=== PATIENT | male | born 1985 | race Two or more races ===

== ENCOUNTER 2024-07-13 08:17 | Inpatient (IN) | payer OTHER ==
[~2024-07-13] VITALS: Ht 167.6 cm; Wt 77.0 kg
[2024-07-13] MEDS: LORazepam 2 MG/ML VIAL IM ONE (08:54)
[2024-07-13 09:04] LABS: BASOPHILS % (AUTO) 0.3 % (0.0-2.0); EOSINOPHILS % (AUTO) 0.2 % (1.0-6.0); HEMATOCRIT 43.1 % (41-53); HEMOGLOBIN 14.6 g/dL (13.5-17.5); LYMPHOCYTES # (AUTO) 1.4 K/uL (1.0-4.8); LYMPHOCYTES % (AUTO) 11.1 % (22.0-44.0); MEAN CORPUSCULAR HEMOGLOBIN 29.9 pg (26.0-34.0); MEAN CORPUSCULAR HGB CONC 33.9 G/dL (31.0-37.0); MEAN CORPUSCULAR VOLUME 88 fL (80-100); MONOCYTES % (AUTO) 7.3 % (2.0-9.0); NEUTROPHILS # (AUTO) 10.6 K/uL (1.8-7.7); NEUTROPHILS % (AUTO) 81.1 % (40.0-70.0); PLATELET COUNT (AUTO) 309 K/uL (150-450); RED BLOOD CELL COUNT(AUTO) 4.89 MIL/uL (4.50-5.90); RED CELL DISTRIBUTION WIDTH 13.4 % (11.5-14.5); WHITE BLOOD COUNT (AUTO) 13.1 K/uL (4.5-11.0)
[2024-07-13 09:12] LABS: ANION GAP 15 mmol/L (8-16); CALCIUM, TOTAL 9.4 mg/dL (8.8-10.5); CARBON DIOXIDE 24 mmol/L (22-29); CHLORIDE 94 mmol/L (98-107); CREATININE 0.95 mg/dL (0.60-1.30); GLOMERULAR FILTR. RATE CALC > 60 mL/min (>60); GLUCOSE,RANDOM 98 mg/dL (70-110); POTASSIUM 3.3 mmol/L (3.5-5.1); SODIUM SERUM 133 mmol/L (136-145); UREA NITROGEN, BLOOD 11 mg/dL (7-18)
[2024-07-13 09:21] LABS: ALCOHOL, BLOOD (SERUM) < 3 mg/dL (0-10)
[2024-07-13 09:23] LABS: TROPONIN I-HIGH SENSITIVITY 7 ng/L (<76)
[2024-07-13] MEDS: POTASSIUM CHLORIDE 10% 40 MEQ/30 ML LIQUID UDCUP PO ONE (09:53)
[2024-07-13] MEDS: CARVEDILOL 6.25 MG TABLET PO ONE (10:10)
[2024-07-13] MEDS ORDERED: ACETAMINOPHEN 325 MG TABLET PO PRN (11:00)
[2024-07-13] MEDS ORDERED: ONDANSETRON HCL 4 MG/2 ML VIAL IVP PRN (11:00)
[2024-07-13] MEDS: [UNRECOGNIZED DRUG - OTHER] IV ONE (11:46)
[2024-07-13] MEDS: POTASSIUM CHL IV ONE (11:46)
[2024-07-13] MEDS: HEPARIN SODIUM,PORCINE 5,000 UNITS/ML VIAL SQ SCH (15:23)
[2024-07-13 17:07] VITALS: BP 91/35; RESP 16; O2SAT 98
[2024-07-13 20:01] VITALS: BP 127/55; PULSE 88; RESP 18; TEMP 97.9; O2SAT 99
[2024-07-13] MEDS: DOCUSATE SODIUM 100 MG CAPSULE PO SCH (21:04)
[2024-07-14 05:03] VITALS: BP 116/58; PULSE 98; RESP 18; TEMP 98; O2SAT 98
[2024-07-14 06:59] LABS: ALCOHOL, URINE DRUG SCREEN NEGATIVE (NEGATIVE); AMPHET/METH SCREEN,URINE POSITIVE (NEGATIVE); BARBITURATE SCREEN, URINE NEGATIVE (NEGATIVE); BENZODIAZEPINES SCREEN,URINE NEGATIVE (NEGATIVE); CANNABINOID SCREEN,URINE NEGATIVE (NEGATIVE); COCAINE SCREEN,URINE NEGATIVE (NEGATIVE); METHADONE SCREEN, URINE NEGATIVE (NEGATIVE); OPIATE SCREEN,URINE NEGATIVE (NEGATIVE); PHENCYCLIDINE SCREEN,URINE NEGATIVE (NEGATIVE)
[2024-07-14 07:44] LABS: BASOPHILS % (AUTO) 0.6 % (0.0-2.0); EOSINOPHILS % (AUTO) 2.2 % (1.0-6.0); HEMATOCRIT 43.3 % (41-53); HEMOGLOBIN 14.3 g/dL (13.5-17.5); LYMPHOCYTES # (AUTO) 1.9 K/uL (1.0-4.8); LYMPHOCYTES % (AUTO) 31.9 % (22.0-44.0); MEAN CORPUSCULAR HGB CONC 33.1 G/dL (31.0-37.0); MEAN CORPUSCULAR VOLUME 91 fL (80-100); MONOCYTES # (AUTO) 0.6 K/uL (0.1-1.0); MONOCYTES % (AUTO) 9.8 % (2.0-9.0); NEUTROPHILS # (AUTO) 3.3 K/uL (1.8-7.7); NEUTROPHILS % (AUTO) 55.5 % (40.0-70.0); PLATELET COUNT (AUTO) 281 K/uL (150-450); RED BLOOD CELL COUNT(AUTO) 4.78 MIL/uL (4.50-5.90); RED CELL DISTRIBUTION WIDTH 13.4 % (11.5-14.5); WHITE BLOOD COUNT (AUTO) 5.9 K/uL (4.5-11.0)
[2024-07-14 07:56] LABS: CARBON DIOXIDE 26 mmol/L (22-29); CREATININE 0.89 mg/dL (0.60-1.30); GLOMERULAR FILTR. RATE CALC > 60 mL/min (>60); GLUCOSE,RANDOM 75 mg/dL (70-110); UREA NITROGEN, BLOOD 15 mg/dL (7-18)
[2024-07-14 08:03] LABS: ANION GAP 13 mmol/L (8-16); CHLORIDE 98 mmol/L (98-107); POTASSIUM 3.8 mmol/L (3.5-5.1); SODIUM SERUM 137 mmol/L (136-145)
[2024-07-14 08:42] VITALS: BP 100/62; PULSE 102; RESP 20; TEMP 98.4; O2SAT 100
[2024-07-14] MEDS: CARVEDILOL 3.125 MG TABLET PO SCH (15:00)
[2024-07-14 16:03] VITALS: BP 100/59; PULSE 90; RESP 17; TEMP 98.8; O2SAT 98
[2024-07-14 20:16] VITALS: BP 100/63; PULSE 83; RESP 18; TEMP 98.3; O2SAT 96
[2024-07-15 05:27] VITALS: BP 117/54; PULSE 78; RESP 20; TEMP 98.5; O2SAT 97
[2024-07-15 07:51] VITALS: BP 114/53; PULSE 89; RESP 19; TEMP 98.2; O2SAT 100
== END 2024-07-15 16:30 | DRG 640 ==
LOC: EMS 08:17 → EDH 15:44 → 6S 16:33
PROVIDERS: ADMIT Internal Medicine; ATTEND Internal Medicine
DX: E87.6 Hypokalemia (principal); G92.9 Unspecified toxic encephalopathy; R65.10 Systemic inflammatory response syndrome (SIRS) of non-infectious origin without acute organ dysfunction; E87.1 Hypo-osmolality and hyponatremia; E86.0 Dehydration; F19.229 Other psychoactive substance dependence with intoxication, unspecified; I10 Essential (primary) hypertension; F17.200 Nicotine dependence, unspecified, uncomplicated
CPT/HCPCS: 71045; 80048; 80307; 83735; 84484; 85025; 93005; 99285; G0480; J1644; J2060; J3480; 36415-L1; 36415-TC